=== PATIENT | male | born 1960 | race Caucasian/White ===

== ENCOUNTER 2020-06-06 09:59 | Outpatient (REF) | payer OTHER, SELFPAY ==
[2020-06-06 12:02] LABS: Alanine Aminotransferase 11 U/L (0-40); Alkaline Phosphatase 113 U/L (39-117); Anion Gap 10 (12-20); Aspartate Amino Transferase 15 U/L (5-37); Bilirubin Total 0.5 mg/dL (0.0-1.0); Blood Urea Nitrogen 15 mg/dL (9-16); Calcium 9.2 mg/dL (8.4-10.2); Carbon Dioxide 29 mmol/L (22-29); Chloride 103 mmol/L (96-108); Cholesterol 180 mg/dL; Estimated Glomerular Filt Rate > 60; Glucose Fasting 103 mg/dL (60-99); HDL Cholesterol 64 mg/dL; LDL Cholesterol Calculated 104 mg/dl; Potassium 4.6 mmol/L (3.3-5.1); Sodium 137 mmol/L (135-145); Total Protein 6.5 g/dL (6.5-8.0); Triglycerides 64 mg/dL
[2020-06-06 12:10] LABS: Prostate Specific Antigen 1.27 ng/mL (<0.05-4.0)
== END 2020-06-06 10:00 | disposition home or self-care (01) ==
LOC: HO.MANLDS 09:59
PROVIDERS: PCP Internal Medicine; Visit Provider Internal Medicine
DX: Z12.5 Encounter for screening for malignant neoplasm of prostate (principal); I10 Essential (primary) hypertension
CPT/HCPCS: 36415; 80053; 80061; 84153

== ENCOUNTER 2021-08-05 10:00 | Outpatient (REF) | payer OTHER, SELFPAY ==
[2021-08-05 11:20] LABS: MANUAL DIFF FLAG NO
[2021-08-05 11:25] LABS: Basophils Percent Auto 0.2 % (0-2); Eosinophils Absolute Auto 0.2 X10*3/uL (0.0-0.4); Eosinophils Percent Auto 4.9 % (0-4); Hematocrit 40.9 % (42.0-52.0); Hemoglobin 14.1 g/dl (14.0-18.0); Imm Gran Abs Auto 0.01 X10*3/uL (0.00-0.03); Imm Gran Pct Auto 0.2 % (0.0-0.4); Lymphocytes Absolute Auto 1.2 X10*3/uL (1.2-4.9); Lymphocytes Percent Auto 28.1 % (20-40); Mean Corpuscular HGB Conc 34.5 g/dl (31.0-36.0); Mean Corpuscular Hemoglobin 32.4 pg (27.0-33.0); Mean Platelet Volume 9.4 fL (9.4-12.4); Monocytes Absolute Auto 0.5 X10*3/uL (0.1-1.2); Monocytes Percent Auto 12.1 % (2-11); Neutrophils Absolute Auto 2.4 x10*3/uL (2.0-8.3); Neutrophils Percent Auto 54.5 % (45-73); Platelet Count 272 X10*3/uL (160-400); Red Blood Count 4.35 X10*6/uL (4.60-5.80); Red Cell Distribution Width 12.1 % (11.0-16.0); White Blood Count 4.3 X10*3/uL (4.8-10.8)
[2021-08-05 11:52] LABS: Alanine Aminotransferase 6 U/L (0-40); Albumin Level 4.1 g/dL (3.5-5.0); Alkaline Phosphatase 105 U/L (39-117); Anion Gap 13 (12-20); Aspartate Amino Transferase 13 U/L (5-37); Bilirubin Total 0.4 mg/dL (0.0-1.0); Blood Urea Nitrogen 15 mg/dL (9-16); Calcium 9.8 mg/dL (8.4-10.2); Carbon Dioxide 27 mmol/L (22-29); Chloride 103 mmol/L (96-108); Estimated Glomerular Filt Rate > 60; Glucose Fasting 93 mg/dL (60-99); Potassium 4.8 mmol/L (3.3-5.1); Sodium 138 mmol/L (135-145); Total Protein 6.8 g/dL (6.5-8.0)
[2021-08-05 12:05] LABS: Thyroid Stimulating Hormone 0.01 uIU/mL (0.32-4.0); Vitamin D 25-OH Total 53.2 ng/mL (>30)
[2021-08-05 12:35] LABS: Vitamin B12 337 pg/mL (200-900)
[2021-08-11 14:20] LABS: Testosterone, Free 72.8 pg/mL (35.0-155.0); Testosterone, Total 617 ng/dL (250-1100)
== END 2021-08-05 10:01 | disposition home or self-care (01) ==
LOC: HO.MANLDS 10:00
PROVIDERS: PCP Internal Medicine; Visit Provider Internal Medicine
DX: R53.81 Other malaise (principal)
CPT/HCPCS: 36415; 80053; 82306; 82607; 84402; 84403; 84443; 85025

== ENCOUNTER 2021-08-19 11:44 | Outpatient (REF) | payer OTHER, SELFPAY ==
[2021-08-19 14:07] LABS: Free T4 (Free Thyroxine) 1.49 ng/dL (0.71-1.85); Thyroid Stimulating Hormone 0.02 uIU/mL (0.32-4.0)
[2021-09-09 08:42] LABS: SARS COV2 IgG Negative
== END 2021-08-19 11:45 | disposition home or self-care (01) ==
LOC: HO.MANLDS 11:44
PROVIDERS: PCP Internal Medicine; Visit Provider Internal Medicine
DX: Z20.822 Contact with and (suspected) exposure to COVID-19 (principal); R53.83 Other fatigue; E03.9 Hypothyroidism, unspecified
CPT/HCPCS: 36415; 84439; 84443; 86769

== ENCOUNTER 2021-09-06 12:06 | Outpatient (REF) | payer OTHER, SELFPAY ==
[2021-09-06 19:05] LABS: Alanine Aminotransferase 16 U/L (0-40); Albumin Level 4.1 g/dL (3.5-5.0); Alkaline Phosphatase 117 U/L (39-117); Anion Gap 13 (12-20); Aspartate Amino Transferase 23 U/L (5-37); Bilirubin Total 0.5 mg/dL (0.0-1.0); Blood Urea Nitrogen 30 mg/dL (9-16); Calcium 9.3 mg/dL (8.4-10.2); Carbon Dioxide 27 mmol/L (22-29); Chloride 103 mmol/L (96-108); Estimated Glomerular Filt Rate > 60; Glucose Random 85 mg/dL (60-115); Potassium 4.6 mmol/L (3.3-5.1); Sodium 138 mmol/L (135-145); Total Protein 6.7 g/dL (6.5-8.0)
[2021-09-06 19:25] LABS: Free T4 (Free Thyroxine) 1.35 ng/dL (0.71-1.85); Thyroid Stimulating Hormone 0.23 uIU/mL (0.32-4.0)
[2021-09-06 19:29] LABS: Vitamin B12 309 pg/mL (200-900)
== END 2021-09-06 12:07 | disposition home or self-care (01) ==
LOC: HO.MANLDS 12:06
PROVIDERS: Visit Provider Internal Medicine
DX: E03.9 Hypothyroidism, unspecified (principal); I10 Essential (primary) hypertension; E53.8 Deficiency of other specified B group vitamins
CPT/HCPCS: 36415; 80053; 82607; 84439; 84443

== ENCOUNTER 2021-11-01 09:31 | Outpatient (REF) | payer OTHER, SELFPAY ==
[2021-11-01 11:56] LABS: T4 Thyroxine 9.1 ug/dL (4.5-12.0)
== END 2021-11-01 09:32 | disposition home or self-care (01) ==
LOC: HO.MANLDS 09:31
PROVIDERS: Visit Provider Internal Medicine
DX: E03.9 Hypothyroidism, unspecified (principal)
CPT/HCPCS: 36415; 84436; 84443

== ENCOUNTER 2021-11-08 11:41 | Outpatient (REF) | payer OTHER, SELFPAY ==
[2021-11-08 13:12] LABS: Blood Urea Nitrogen 18 mg/dL (9-16); Estimated Glomerular Filt Rate > 60
== END 2021-11-08 11:42 | disposition home or self-care (01) ==
LOC: HO.MANLDS 11:41
PROVIDERS: PCP Internal Medicine; Referring Provider Internal Medicine; Visit Provider Physician Assistant
DX: R31.21 Asymptomatic microscopic hematuria (principal); R82.89 Other abnormal findings on cytological and histological examination of urine
CPT/HCPCS: 36415; 82565; 84520

== ENCOUNTER 2021-12-16 13:32 | Outpatient (REF) | payer OTHER, SELFPAY ==
[2021-12-16 18:41] LABS: MANUAL DIFF FLAG NO
[2021-12-16 18:45] LABS: Basophils Percent Auto 0.4 % (0-2); Eosinophils Absolute Auto 0.4 X10*3/uL (0.0-0.4); Eosinophils Percent Auto 5.5 % (0-4); Hematocrit 42.1 % (42.0-52.0); Hemoglobin 13.6 g/dl (14.0-18.0); Imm Gran Abs Auto 0.05 X10*3/uL (0.00-0.03); Imm Gran Pct Auto 0.7 % (0.0-0.4); Lymphocytes Absolute Auto 1.5 X10*3/uL (1.2-4.9); Lymphocytes Percent Auto 20.4 % (20-40); Mean Corpuscular HGB Conc 32.3 g/dl (31.0-36.0); Mean Corpuscular Hemoglobin 31.1 pg (27.0-33.0); Mean Corpuscular Volume 96.3 fL (80.0-98.0); Mean Platelet Volume 9.6 fL (9.4-12.4); Monocytes Absolute Auto 0.5 X10*3/uL (0.1-1.2); Neutrophils Absolute Auto 4.7 x10*3/uL (2.0-8.3); Platelet Count 357 X10*3/uL (160-400); Red Blood Count 4.37 X10*6/uL (4.60-5.80); Red Cell Distribution Width 15.7 % (11.0-16.0); White Blood Count 7.2 X10*3/uL (4.8-10.8)
[2021-12-16 19:04] LABS: Alanine Aminotransferase 56 U/L (0-40); Albumin Level 3.7 g/dL (3.5-5.0); Alkaline Phosphatase 82 U/L (39-117); Anion Gap 14 (12-20); Aspartate Amino Transferase 31 U/L (5-37); Blood Urea Nitrogen 14 mg/dL (9-16); Calcium 8.9 mg/dL (8.4-10.2); Carbon Dioxide 28 mmol/L (22-29); Chloride 102 mmol/L (96-108); Estimated Glomerular Filt Rate 60; Glucose Random 116 mg/dL (60-115); Potassium 4.9 mmol/L (3.3-5.1); Sodium 139 mmol/L (135-145); Total Protein 6.3 g/dL (6.5-8.0)
[2021-12-16 19:27] LABS: Free T4 (Free Thyroxine) 1.17 ng/dL (0.71-1.85); Thyroid Stimulating Hormone 0.07 uIU/mL (0.32-4.0)
== END 2021-12-16 13:33 | disposition home or self-care (01) ==
LOC: HO.MANLDS 13:32
PROVIDERS: Visit Provider Internal Medicine
DX: E03.9 Hypothyroidism, unspecified (principal)
CPT/HCPCS: 36415; 80053; 84439; 84443; 85025

== ENCOUNTER 2021-12-27 13:48 | Outpatient (REF) | payer OTHER, SELFPAY ==
[2021-12-27 19:11] LABS: Free T4 (Free Thyroxine) 1.09 ng/dL (0.71-1.85)
== END 2021-12-27 13:49 | disposition home or self-care (01) ==
LOC: HO.MANLDS 13:48
PROVIDERS: Visit Provider Internal Medicine
DX: E03.9 Hypothyroidism, unspecified (principal)
CPT/HCPCS: 36415; 84439; 84443

== ENCOUNTER 2022-06-18 11:16 | Outpatient (REF) | payer OTHER, SELFPAY ==
[2022-06-18 14:54] LABS: Alanine Aminotransferase 39 U/L (0-40); Alkaline Phosphatase 113 U/L (39-117); Anion Gap 12 (12-20); Aspartate Amino Transferase 26 U/L (5-37); Blood Urea Nitrogen 16 mg/dL (9-16); Calcium 9.1 mg/dL (8.4-10.2); Carbon Dioxide 30 mmol/L (22-29); Chloride 98 mmol/L (96-108); Estimated Glomerular Filt Rate 48; Glucose Random 94 mg/dL (60-115); Magnesium 2.2 mg/dL (1.6-2.6); Potassium 4.2 mmol/L (3.3-5.1); Sodium 136 mmol/L (135-145); Total Protein 6.3 g/dL (6.5-8.0)
[2022-06-18 15:34] LABS: Folate 13.5 ng/mL (> or = 4.0)
[2022-06-19 06:46] LABS: Vitamin B12 688 pg/mL (200-900)
== END 2022-06-18 11:17 | disposition home or self-care (01) ==
LOC: HO.MANLDS 11:16
PROVIDERS: Visit Provider Internal Medicine
DX: R25.1 Tremor, unspecified (principal)
CPT/HCPCS: 36415; 80053; 82607; 82746; 83735; 84443

== ENCOUNTER 2022-07-08 11:35 | Outpatient (REF) | payer OTHER, SELFPAY ==
[2022-07-08 13:39] LABS: Anion Gap 10 (12-20); Blood Urea Nitrogen 15 mg/dL (9-16); Calcium 9.2 mg/dL (8.4-10.2); Carbon Dioxide 31 mmol/L (22-29); Chloride 100 mmol/L (96-108); Estimated Glomerular Filt Rate > 60; Glucose Random 103 mg/dL (60-115); Potassium 5.1 mmol/L (3.3-5.1); Sodium 136 mmol/L (135-145)
== END 2022-07-08 11:36 | disposition home or self-care (01) ==
LOC: HO.MANLDS 11:35
PROVIDERS: Visit Provider Internal Medicine
DX: N28.9 Disorder of kidney and ureter, unspecified (principal)
CPT/HCPCS: 36415; 80048

== ENCOUNTER 2023-05-22 15:56 | Outpatient (REF) | payer OTHER, SELFPAY ==
[2023-05-22 18:05] LABS: Alanine Aminotransferase 23 U/L (0-40); Albumin Level 3.8 g/dL (3.5-5.0); Alkaline Phosphatase 106 U/L (39-117); Anion Gap 12 (12-20); Aspartate Amino Transferase 27 U/L (5-37); Bilirubin Total 0.6 mg/dL (0.0-1.0); Blood Urea Nitrogen 15 mg/dL (9-16); Carbon Dioxide 30 mmol/L (22-29); Chloride 103 mmol/L (96-108); Estimated Glomerular Filt Rate 44; Glucose Random 95 mg/dL (60-115); Magnesium 1.9 mg/dL (1.6-2.6); Potassium 4.9 mmol/L (3.3-5.1); Sodium 140 mmol/L (135-145); Total Protein 6.4 g/dL (6.5-8.0)
== END 2023-05-22 15:57 | disposition home or self-care (01) ==
LOC: HO.MANLDS 15:56
PROVIDERS: Visit Provider Internal Medicine
DX: R25.1 Tremor, unspecified (principal)
CPT/HCPCS: 36415; 80053; 83735; 84443

== ENCOUNTER 2023-08-25 11:37 | Outpatient (REF) | payer OTHER, SELFPAY ==
[2023-08-25 13:31] LABS: MANUAL DIFF FLAG NO
[2023-08-25 13:50] LABS: Basophils Percent Auto 0.6 % (0-2); Eosinophils Absolute Auto 0.3 X10*3/uL (0.0-0.4); Eosinophils Percent Auto 4.8 % (0-4); Hemoglobin 12.1 g/dl (14.0-18.0); Imm Gran Abs Auto 0.01 X10*3/uL (0.00-0.03); Imm Gran Pct Auto 0.2 % (0.0-0.4); Lymphocytes Absolute Auto 1.2 X10*3/uL (1.2-4.9); Lymphocytes Percent Auto 23.4 % (20-40); Mean Corpuscular HGB Conc 33.6 g/dl (31.0-36.0); Mean Corpuscular Hemoglobin 31.2 pg (27.0-33.0); Mean Corpuscular Volume 92.8 fL (80.0-98.0); Mean Platelet Volume 10.3 fL (9.4-12.4); Monocytes Absolute Auto 0.6 X10*3/uL (0.1-1.2); Monocytes Percent Auto 11.2 % (2-11); Neutrophils Absolute Auto 3.1 x10*3/uL (2.0-8.3); Neutrophils Percent Auto 59.8 % (45-73); Platelet Count 286 X10*3/uL (160-400); Red Blood Count 3.88 X10*6/uL (4.60-5.80); Red Cell Distribution Width 13.7 % (11.0-16.0); White Blood Count 5.2 X10*3/uL (4.8-10.8)
[2023-08-25 14:25] LABS: Alanine Aminotransferase 11 U/L (0-40); Albumin Level 3.9 g/dL (3.5-5.0); Alkaline Phosphatase 104 U/L (39-117); Anion Gap 11 (12-20); Aspartate Amino Transferase 16 U/L (5-37); Bilirubin Total 0.3 mg/dL (0.0-1.0); Blood Urea Nitrogen 15 mg/dL (9-16); Calcium 9.1 mg/dL (8.4-10.2); Carbon Dioxide 29 mmol/L (22-29); Chloride 103 mmol/L (96-108); Estimated Glomerular Filt Rate > 60; Glucose Random 100 mg/dL (60-115); Potassium 3.8 mmol/L (3.3-5.1); Sodium 139 mmol/L (135-145); Total Protein 6.7 g/dL (6.5-8.0)
== END 2023-08-25 11:38 | disposition home or self-care (01) ==
LOC: HO.MANLDS 11:37
PROVIDERS: Referring Provider Orthopaedic Surgery; Visit Provider Internal Medicine
DX: Z01.818 Encounter for other preprocedural examination (principal)
CPT/HCPCS: 36415; 80053; 85025

== ENCOUNTER 2024-05-23 15:40 | Outpatient (REF) | payer MEDICAID, SELFPAY ==
--- OUTSIDE RECORDS SUMMARY | 2024-05-23 17:57 | XMS_ITS | Patient Health Record ---
[facility] Address [address] [place] [address] Care Team Providers Care Family Practice Physician Name Role Phone Roland Mirza MD Primary Care Provider Unavailabl e Black, Ana Unavailable [phone] Allergies No Known Allergies Reason For Referral No Information Medications Medication SIG (Take, Route, Frequency, Duration) Notes Start Date End Date Status Synthroid 200 MCG 1 Tablet Orally Twic e daily Active DULoxetine HCl 60 MG 1 capsule Orally On ce a day for 30 day(s) Active Eliquis 5 MG as directed Orally Not-Taking traZODone HCl 100 MG 1 tablet at bedtime Orally Once a day for 30 day(s) Active Sertraline HCl Unkno wn QUEtiapine Fumarate 25 MG 1 Tablet Orally Twice daily Active QUEtiapine Fumarate 100 MG 1 tablet at bedtime Orally Once a day for 30 day(s) Active Ambien 5 MG 1 tablet at bedtime Orally Once a day Active Social History Tobacco Use: Social History Observation Description Date Details (start date - stop date) Never Smoker NA - NA Tobacco Use/Smoking Question Answer Notes Are you a: nonsmoker Additional Findings: Tobacco Non-User Aggressive non-smoker Tobacco use other than smoking: Question Answer Notes Are you an other tobacco user? 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) Active confirmed Plan Of Treatment No Information Insurance Providers Payer Name Payer Address Payer Phone Subscriber Number Group Number Insured Name Patient Relationship to Insured Coverage Start Date Coverage End Date [facility] [address] [place] [address] [id number] Nathaniel Hernandez Self - patient is the insured Medical (General) History Medical History History ICD Code Thyroid disorder Back,Hip,and Knee pain Joint implants/screws A fib Surgical History Surgery Date(Month/Year) knee replacement shoulder replacement 2019 arm 2001 & 2014 Meniscus repair 2011 disc surgery 2014 heart surgery unspecified 2015 left knee arthroscopy 2016 intestinal surgery x2 2016 toe removal 2020
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
--- OUTSIDE RECORDS SUMMARY | 2024-05-23 17:57 | XMS_ITS | Data Portability ---
Author Organization [facility] Mikhail Barron [facility], [facility] Address [address] [place] [address] Care Team Providers Care Jewish Thought Professor Name Role Phone LASHAE NICOLAS Primary Care Provider [phone] Assessment Encounter Date Assessment Date Assessment LastModified by Organization Details LastModified Time 08/19/2023 08/19/2023 Dx:painful right anatomic total shoulder Interval History:the patient returns, complains of ongoing right shoulder pain. Workup has been negative for infectioon but no biopsies have been done. SocHx: nonsmoker, nondrinker Past Medical/Surgical History/Meds/Allerg ies reviewed and charted ROS: negative Physical Exam: afebrile, vital signs stable, in no apparent distress, oriented to person/place/time. Gait symmetric. Skin intact without erythema. Heart RRR Lungs: clear Abdomen soft, nontender. rightSHOULDER: no redness, warmth, deformity. Range of motion active 150/30/30. Strength 5/5 all muscle groups. Apprehension negative. Impingement sign negative. Acromioclavicular joint nontender without irritability with cross body adduction. Neurovascular Exam wnl. Contralateral SHOULDER: no redness, warmth, deformity. Range of motion full in all planes with no stiffnes. Strength 5/5 all muscle groups. Apprehension negative. Impingement sign negative. Acromioclavicular joint nontender without irritability to cross body adduction. Neurovascular Exam wnl. New Studies: 4 views taken today, no obvious radiographic signs of loosening, metal-backed glenoid, apex on the humeral side. Impression:painful right anatomic total shoulder Plan: 1.recommended right shoulder arthroscopy, multiple biopsies to rule out infection, arthroscopicc evaluation of the humeral and glenoid components. Discussed potential need for reverse arthroplasty as definitive management but for 10 to rule out infection and evaluate components for loosening and so I think arthroscopy with debridement and culture/biopsy is a reasonable first step. [employer] [facility] speech recognition manager sales support software was used to create portions of this document. An attempt at proofreading has been made to minimize errors. Please call for corrections. [email or web address] Not available 08/19/2023 15:49:57 09/09/2023 09/09/2023 Procedure/Date:r igh t shoulder arthroscopy, debridement, rotator cuff tear visualized History: Doing well, no complications Exam: Wound benign Radiographs: none. Cultures negative to date Clinical Status: Doing well postoperatively Work Status/Plan: not applicable Physical Therapy Status: Continue per protocol Medication Prescriptions: [none given] Plan/Follow up:6 weeks [facility] speech recognition manager sales support software was used to create portions of this document. An attempt at proofreading has been made to minimize errors. Please call for corrections. [email or web address] Not available 09/09/2023 14:38:10 Plan of Treatment Reminders Order Date Submit Date Provider Last Modified By Organization Details Last Modified Time Details Appointments NEW PATIENT 15 2024 01:30P M Jonny Swartz MD Not available Not available Not available Lab None recorded . Referral None recorded . Procedures None recorded . Surgeries None recorded . Imaging None recorded . Medication Orders None recorded . Patient TargetsNo targets recorded. Patient InstructionsNo instructions recorded. Reason for Referral None Reported. Results Created Date Observation Date Name Description Value Unit Range Abnormal Flag Note LastModifiedBy Organization Detail LastModifiedTime 11/27/19 24 10/11/2018 imagi ng/di agnos tic resul t No observ ation record ed. [email or web address] Not Available 10/30 02:52:19 11/27/19 24 10/11/2018 imagi ng/di agnos tic resul t No observ ation record ed. [email or web address] Not Available 10/30 02:52:21 11/27/19 24 10/11/2018 imagi ng/di agnos tic resul t No observ ation record ed. [email or web address] Not Available 10/30 02:52:22 11/27/19 24 06/02/2019 imagi ng/di agnos tic resul t No observ ation record ed. [email or web address] Not Available 10/30 02:53:05 11/27/19 24 11/27/2022 imagi ng/di agnos tic resul t No observ ation record ed. [email or web address] Not Available 10/30 02:53:38 11/27/19 24 11/27/2022 imagi ng/di agnos tic resul t No observ ation record ed. [email or web address] Not Available 10/30 02:53:39 11/27/19 24 11/27/2022 imagi ng/di agnos tic resul t No observ ation record ed. [email or web address] Not Available 10/30 02:53:40 Result Notes None recorded. Problems Name Problem SNOMED Code Status Onset Date Resolution Date Notes Provider Name and Address Organization Details Recorded Time Tear of lateral meniscus of knee 472107787 Active 2017 Problem Code: S83.272A ; Problem Code Type: ICD-10; Status: 'A'; Not Available [facility] 11:13:45 Tear of medial meniscus of knee 370456806 Active 2017 Problem Code: S83.232A ; Problem Code Type: ICD-10; Status: 'A'; Not Available [facility] 11:13:46 Problem Notes None recorded. Procedures Surgical History None recorded. Imaging Results Imaging Date Name Status LastModified by [facility] Details LastModified Time 10/11/2018 imaging/diag nostic result completed Information not available 11/27/2023 02:52:19 10/11/2018 imaging/diag nostic result completed Information not available 11/27/2023 02:52:21 10/11/2018 imaging/diag nostic result completed Information not available 11/27/2023 02:52:22 06/02/2019 imaging/diag nostic result completed Information not available 11/27/2023 02:53:05 11/27/2022 imaging/diag nostic result completed Information not available 11/27/2023 02:53:38 11/27/2022 imaging/diag nostic result completed Information not available 11/27/2023 02:53:39 11/27/2022 imaging/diag nostic result completed Information not available 11/27/2023 02:53:40 Procedure Notes None recorded. Medical Equipment None Reported. Allergies No known drug allergies Medications Name Sig Start Date Stop Date Status Note LastModified by Organization Details LastModified Time pseudoephe drine-guai fenesin ER 80-700 mg tablet,ext ended release as directed 1 to 2 tablets q 8hrs prn pain 10/17 completed Statu s: 'Disc ontin ued'; Not Available Not Available Not Available morphine 15 mg immediate release tablet Take 1 tablet every 4-6 hours by oral route as needed for 5 days, for post operative pain. 2023 active Not Available Not Available Not Avai lable Synthroid Synthroid 200MCG Tablet 2022 active Statu s: 'Curr ent'; Not Available Not Available Not Available Cartia XT Cartia XT 240MG Capsule Extended Release 24 Hour 10/17 completed Statu s: 'Disc ontin ued'; Not Available Not Available Not Available tadalafil Tadalafil 5MG Tablet 2022 active Statu s: 'Curr ent'; Not Available Not Available Not Available oxycodone HCl-oxycod one-ASA 1 every 4 - 6 hours as needed PRN PAINDO NOT DRIVE WHILE TAKING THIS MEDICATION 2022 active Statu s: 'Curr ent'; Not Available Not Available Not Available Vitals Date Recorded Body height Body mass index (BMI) Body weight Provider Name and Address Organization Details Last Updated DateTime 09/09/2023 190.5 cm 31.5 kg/m2 099267.28 g PRICILA AGUILAR [place] - [facility] 09/09/2023 13:24:00 Social History None recorded. Functional Status None recorded. Mental Status None recorded. Family History Nothing Reported. Medical History No medical history recorded. Past Encounters Encounter ID Performer Location Encounter Start Date Encounter Closed Date Diagnosis/Indication Diagnosis SNOMED-CT Code Diagnosis ICD10 Code Diagnosis Note [id number] MD [facility] [address] [place] [address] 08/19/2023 09:42:45 09/11/2023 13:57:17 History of reverse prosthetic total arthroplasty of right shoulder [id number] 6190372 Z96.975 [id number] MD [facility] [address] [place] [address] 09/09/2023 13:03:49 09/30/2023 10:21:42 History of total arthroplasty of right shoulder 936340820 Z96.611 Health Concerns Section Related Observation LastModified by Organization Detai ls LastModified Time None Recorded Concern Status LastModified by Organization Details LastModified Time None Recorded Advance Directives Directive None Recorded Payers Encounter Date Sequence Insurance Name Policy Number Policy Jacob Covered Member ID Jacob Member ID Guarantor Name 08/19/2023 1 [facility] [id number] Stephania Hernandez [id number] Nathaniel Hernandez 09/09/2023 1 [facility] [id number] Stephania Hernandez [id number] Nathaniel Hernandez
--- OUTSIDE RECORDS SUMMARY | 2024-05-23 17:57 | XMS_ITS ---
Author Name [facility] Organization Unknown History of Medication Use Medication Directions Dispensed Refills Start Date End Date Stat Synthroid 200 MCG tablet Take 2 tablets (400 mcg total) by mouth every morning. 10/07/2022 active QUEtiapine (SEROquel) 100 MG tablet TAKE 1 AND 1/2 TABLETS BY MOUTH DAILY AT BEDTIME 10/20/2022 active DULoxetine (CYMBALTA) 60 MG capsule Take by mouth daily. 10/08/2022 acti ve Problems Problem Status Onset Date Problem Type Date of Resoluti on Source Anxiety active ProblemAct [facility] Disease of thyroid gland active ProblemAct [facility] Insomnia active ProblemAct [facility] Afib active ProblemAct [facility] Obesity (BMI 30.0-34.9) active ProblemAct [facility] Other specified anemias active 2023-01-22 ProblemAct [facility]
--- OUTSIDE RECORDS SUMMARY | 2024-05-23 17:57 | XMS_ITS | Encounter Summary ---
Author Organization [facility] Address [address] [place], [place] [id number] Care Team Providers Care Supervisor Sign Shop Name Role Phone Roland Mirza DO Primary Care Provider [phone] Reason for Visit * Reason Comments Appointment Advice Only Encounter Details Date Type Department Care Team ([facility] st Contact Info) Description 02/18/[address] [address] Jose Bazzi MD [address] [id number] Appointment; Advice Only Social History Tobacco Use Types Packs/Day Years Used Date Smoking Tobacco: Never Smokeless Tobacco: Never Alcohol Use Standard Drinks/Week Comments Never 0 (1 standard drink = 0.6 oz pur e alcohol) AUDIT-C Answer Date Recorded Q1: How often do you have a drink containing alcohol? Never 01/14/2023 Q2: How many drinks containi ng alcohol do you have on a typical day when you are drinking? Patient does not drink Q3: How often do you have si x or more drinks on one occasion? Never 01/14/2023 Sex and Gender Information Value Date Recorded Sex Assigned at Male 09/10/2022 11:03 AM EDT Gender Identity Male 09/10/2022 11:03 AM EDT Sexual Orientation Not on file documented as of this encounter Miscellaneous Notes * Telephone Encounter - Siri Marie LPN - 2023 8:17 AM EST Spoke with patient, he is feeling improved and is comfortable waiting to be seen on his scheduled appt date Siri Marie LPN 2023 8:17 AM * Telephone Encounter - Siri Marie LPN - 02/18/2023 1:17 PM EST Spoke with patient, he is going to set up mychart and send a picture to assess Siri Marie LPN 02/18/2023 1:17 PM documented in this encounter Plan of Treatment Not on file documented as of this encounter Visit Diagnoses Not on filedocumented in this encounter Care Teams Supervisor Sign Shop Relationship Specialty Start Date End Date Roland Mirza DO [address] [facility] [place] [address] [place] [address] PCP - General 09/10/22 documented as of this encounter
--- OUTSIDE RECORDS SUMMARY | 2024-05-23 17:57 | XMS_ITS | Clinical Summary ---
Author Organization [facility] Address [address] [place] [address] Care Team Providers Care Slip Presser Name Role Phone Roland Mirza DO Primary Care Provider [phone] Allergies No known active allergies Medications Medication Sig Dispensed Refills Start Date End Date Status buPROPion (WELLBUTRIN XL) 300 MG 24 hr tablet Take 1 tablet (300 mg total) by mouth every morning. 10/08/2022 Active DULoxetine (CYMBALTA) 60 MG capsule Take 1 capsule (60 mg total) by mouth every morning. 10/08/2022 Active QUEtiapine (SEROquel) 100 MG tablet TAKE 1 AND 1/2 TABLETS BY MOUTH DAILY AT BEDTIME 10/20/2022 Active PreviDent 5000 Dry Mouth 1.1 % Gel USE ONCE EVERY DAY IN PLACE OF REGULAR TOOTHPASTE 10/10/2022 Active traZODone (DESYREL) 100 MG tablet Take 2 tablets (200 mg total) by mouth nightly. 10/20/2022 Active tadalafil (CIALIS) 5 mg tablet Take 1 tablet (5 mg total) by mouth daily. 10/20/2022 Active Synthroid 200 MCG tablet Take 2 tablets (400 mcg total) by mouth every morning. 10/07/2022 Active oxyCODONE (ROXICODONE) 5 MG immediate release tablet Take 1 tablet (5 mg total) by mouth every 4 (four) hours as needed for severe pain. Max Daily Amount: 30 mg Active oxyCODONE (ROXICODONE) 5 MG immediate release tabletIndications:P eyronie's disease Take 1 tablet (5 mg total) by mouth 3 times daily (every 8 hours) as needed for severe pain. Continue on any baseline narcotics that you take on a regular basis and you may take an extra 5 mg up to every 8 hours as needed for breakthrough pain over the next few days Max Daily Amount: 15 mg 6 tablet 02/04/2023 Active phenazopyridine (PYRIDIUM) 200 MG tabletIndications:P eyronie's disease Take 1 tablet (200 mg total) by mouth 3 times daily (every 8 hours) as needed (Burning with urination (dysuria)). 6 tablet 02/04/2023 Active Active Problems Problem Noted Date Diagnosed Date Other specified anemias 01/22/2023 Assessment & Plan (01/22/2023 3:03 PM EDT): On lab review H&H= 12.4 & 39 on 01/21/23. Intervention: Lab monitoring. Anxiety Assessment & Plan (01/21/2023 11:22 AM EDT): Managed by therapy with Scarlett Robins, therapist and medications prescribed by Roland Mirza DO. Patient denies suicidal or homicidal ideation. Continue current medication regimen as prescribed. Patient to follow up with provider as previously directed. Disease of thyroid gland Overview (01/21/2023): HYPOTHYROIDISM Assessment & Plan (01/21/2023 11:23 AM EDT): Compliant with thyroid medication. Continue current medication regimen as prescribed. Patient to follow up with PCP or city councilman for continued management of hypothyroidism as previously directed. Insomnia Assessment & Plan (01/21/2023 11:23 AM EDT): Managed with current regimen. Continue with plan of care and follow up with PCP for further management and treatment. Obesity (BMI 30.0-34.9) Assessment & Plan (01/21/2023 12:20 PM EDT): BMI 33.97. Lifestyle modifications, diet, and exercise. Afib Assessment & Plan (01/21/2023 11:28 AM EDT): History of atrial fibrillation. Stable does not require any medication at this time. Patient reports he has had two ablations. The last ablation was in 2017 and has not had any reoccurring afib. Currently followed by Dr. Farmer at [facility]. Last note reviewed. Continue with plan of care and follow up as previously directed for further management and treatment. Family History Medical History Relation Name Comments Heart disease Father Heart disease Mother Relation Name Status Comments Father Mother Social History Tobacco Use Types Packs/Day Years Used Date Smoking Tobacco: Never Smokeless Tobacco: Never Tobacco Cessation:Counseling Given: Not Answered Alcohol Use Standard Drinks/Week Comments Never 0 [...] AM EDT Sexual Orientation Not on file Last Filed Vital Signs Vital Sign Reading Time Taken Comments Blood Pressure 147/83 02/04/2023 10:45 AM EST Pulse 73 02/04/2023 10:45 AM EST Temperature 36.9 ??C (98.4 ??F) 02/04/2023 9:50 AM ES T Respiratory Rate 14 02/04/2023 10:45 AM EST Oxygen Saturation 97% 02/04/2023 10:45 AM EST Inhaled Oxygen Concentration - - Weight 120 kg (264 lb 8.8 oz) 01/21/2023 11:26 A M EDT Height 188 cm (6' 2 ) 01/21/2023 11:26 AM EDT Body Mass Index 33.97 01/21/2023 11:26 AM EDT Plan of Treatment Health Maintenance Due Date Last Done Comments Hepatitis C Virus Screening 1962 HIV Screening 1975 DTaP/Tdap/Td Vaccines (1 - Tdap) 1981 Colonoscopy 2007 Pneumococcal Vaccines 50+ (1 of 1 - PCV) 02/21/2012 Zoster (Shingles) Vaccine (1 of 2) 02/21/2012 Influenza Vaccine 10/29/2023 COVID-19 Vaccine ( - 2023-2 5 season) 2023 RSV Vaccine 60 years and old er and Patients (1 - 1-dose 75+ series) 2037 Hepatitis B Vaccines Aged Out No long er eligible based on patient's age to complete this topic Pneumococcal Vaccine: Pediat franck (0-5 Years) and At-Risk Patients (6 to 49 Years) Aged Out No longer eligible b ased on patient's age to complete this topic Advance Directives * Full Code (Latest Code Status on File) Date Activated Date Inactivated Comments 02/04/2023 7:24 AM Care Teams Slip Presser Relationship Specialty Start Date End Date Roland Mirza DO [address] [facility] [place] [address] [place] [address] PCP - General 09/10/22
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
[2024-05-23 17:58] LABS: MANUAL DIFF FLAG NO
[2024-05-23 18:12] LABS: Basophils Percent Auto 0.4 % (0-2); Eosinophils Absolute Auto 0.3 X10*3/uL (0.0-0.4); Eosinophils Percent Auto 5.5 % (0-4); Hematocrit 35.9 % (42.0-52.0); Hemoglobin 11.6 g/dl (14.0-18.0); Imm Gran Abs Auto 0.02 X10*3/uL (0.00-0.03); Imm Gran Pct Auto 0.4 % (0.0-0.4); Lymphocytes Absolute Auto 1.2 X10*3/uL (1.2-4.9); Lymphocytes Percent Auto 22.6 % (20-40); Mean Corpuscular HGB Conc 32.3 g/dl (31.0-36.0); Mean Corpuscular Hemoglobin 29.7 pg (27.0-33.0); Mean Corpuscular Volume 91.8 fL (80.0-98.0); Mean Platelet Volume 11.6 fL (9.4-12.4); Monocytes Absolute Auto 0.6 X10*3/uL (0.1-1.2); Neutrophils Absolute Auto 3.1 x10*3/uL (2.0-8.3); Neutrophils Percent Auto 59.1 % (45-73); Platelet Count 326 X10*3/uL (160-400); Red Blood Count 3.91 X10*6/uL (4.60-5.80); Red Cell Distribution Width 14.2 % (11.0-16.0); White Blood Count 5.3 X10*3/uL (4.8-10.8)
[2024-05-23 18:38] LABS: Alanine Aminotransferase 9 U/L (0-40); Albumin Level 3.4 g/dL (3.5-5.0); Anion Gap 11 (12-20); Aspartate Amino Transferase 22 U/L (5-37); Bilirubin Total 0.2 mg/dL (0.0-1.0); Blood Urea Nitrogen 10 mg/dL (9-16); Carbon Dioxide 26 mmol/L (22-29); Chloride 103 mmol/L (96-108); Cholesterol 144 mg/dL (<200); Estimated Glomerular Filt Rate > 60; Glucose Random 98 mg/dL (60-115); HDL Cholesterol 43 mg/dL (>40); LDL Cholesterol Calculated 88 mg/dL (<100); Potassium 4.3 mmol/L (3.3-5.1); Sodium 136 mmol/L (135-145); Total Protein 6.8 g/dL (6.5-8.0); Triglycerides 67 mg/dL (<150)
[2024-05-23 18:44] LABS: Rheumatoid Factor < 13.0 IU/mL (<15.0)
[2024-05-23 18:46] LABS: Alkaline Phosphatase 122 U/L (39-117)
[2024-05-23 18:49] LABS: Prostate Specific Antigen 1.91 ng/mL (<0.05-4.0)
[2024-05-23 18:58] LABS: Erythrocyte Sedimentation Rate 34 MM/HR (0-15); T4 Thyroxine 11.8 ug/dL (4.5-12.0); Thyroid Stimulating Hormone 0.07 uIU/mL (0.32-4.0)
[2024-05-24 13:58] LABS: Lyme Abs Screen <0.90 index
[2024-05-26 11:14] LABS: Anti Nuclear Antibody Screen NEGATIVE (NEGATIVE)
== END 2024-05-23 15:41 | disposition home or self-care (01) ==
LOC: HO.MANLDS 15:40
PROVIDERS: Visit Provider Internal Medicine
DX: E03.9 Hypothyroidism, unspecified (principal); I10 Essential (primary) hypertension; M25.50 Pain in unspecified joint
CPT/HCPCS: 36415; 80053; 80061; 84153; 84436; 84443; 85025; 85652; 86038; 86140; 86431; 86617; 86618

== ENCOUNTER 2024-05-31 16:20 | Outpatient (REF) | payer MEDICAID, SELFPAY ==
[2024-05-31 18:48] LABS: Iron 30 mcg/dL (45-160); Percent Iron Saturation 19 % (15-50); Total Iron Binding Capacity 162 mcg/dL (228-428); Unsaturated Iron Binding 132 ug/dL
[2024-05-31 18:59] LABS: Ferritin 169 ng/mL (20-250)
[2024-05-31 19:36] LABS: Folate 10.6 ng/mL (> or = 4.0); Vitamin B12 250 pg/mL (200-900)
--- OUTSIDE RECORDS SUMMARY | 2024-05-31 20:07 | XMS_ITS | Data Portability ---
Author Organization [facility] Mikhail Barron [facility], [facility] Address [address] [place] [address] Care Team Providers Care Chief Privacy Officer Name Role Phone LASHAE NICOLAS Primary Care Provider Assessment Encounter Date Assessment Date Assessment LastModified [...] and culture/biopsy is a reasonable first step. [employer] [facility] speech recognition machine woodworking sander software was used to create portions of [...] Medication Prescriptions: [none given] Plan/Follow up:6 weeks [facility] speech recognition machine woodworking sander software was used to create portions of [...] Time Tear of lateral meniscus of knee 117969128 Active 2017 Problem Code: S83.272A ; Problem Code Type: ICD-10; Status: 'A'; Not Available [facility] 11:13:45 Tear of medial meniscus of knee 331592459 Active 2017 Problem Code: S83.232A ; Problem Code Type: ICD-10; Status: 'A'; Not Available [facility] 11:13:46 Problem Notes None recorded. Procedures Surgical History None recorded. Imaging Results Imaging Date Name Status LastModified by [facility] Details LastModified Time 10/11/2018 imaging/diag nostic [...] Updated DateTime 09/09/2023 190.5 cm 31.5 kg/m2 350237.28 g PRICILA AGUILAR [place] - [facility] 09/09/2023 13:24:00 Social History None recorded. Functional Status None recorded. Mental Status None recorded. Family History Nothing Reported. Medical History No medical history recorded. Past Encounters Encounter ID Performer Location Encounter Start Date Encounter Closed Date Diagnosis/Indication Diagnosis SNOMED-CT Code Diagnosis ICD10 Code Diagnosis Note [id number] MD Ana Lyn [address] [place] [address] 08/19/2023 09:42:45 09/11/2023 13:57:17 History of reverse prosthetic total arthroplasty of right shoulder 6652598355 0752578 Z96.931 [id number] MD Ana Lyn [address] [place] [address] 09/09/2023 13:03:49 09/30/2023 10:21:42 History of total arthroplasty of right shoulder 962321671 Z96.611 Health Concerns Section Related Observation LastModified by Organization Detai ls LastModified Time None Recorded Concern Status LastModified by Organization Details LastModified Time None Recorded Advance Directives Directive None Recorded Payers Encounter Date Sequence Insurance Name Policy Number Policy Jacob Covered Member ID Jacob Member ID Guarantor Name 08/19/2023 1 [facility] [id number] Stephania Hernandez [id number] Nathaniel Hernandez 09/09/2023 1 [facility] [id number] Stephania Hernandez [id number] Nathaniel Hernandez
--- OUTSIDE RECORDS SUMMARY | 2024-05-31 20:08 | XMS_ITS | Patient Health Record ---
Author Organization [facility] Address [address] [place] [address] Care Team Providers Care Paint Crew Supervisor Name Role Phone Roland Mirza MD Primary Care Provider Unavailabl e Black, Ana Unavailable [phone] Allergies No Known Allergies Reason For Referral [...] Problem Acquired hammer toe of left foot (521800816286 9103) Other hammer toe(s) (acquired), left foot (M20.42) Active confirmed Problem Acquired deformity of left foot (373705778805 37082) PlantarFlexion of metatarsal of left foot (M21.6X2) Active confirmed Plan Of Treatment No Information Insurance Providers Payer Name Payer Address Payer Phone Subscriber Number Group Number Insured Name Patient Relationship to Insured Coverage Start Date Coverage End Date [facility] [address] [place] [address] [id number] Nathaniel Hernandez Self - patient is the [...]
--- OUTSIDE RECORDS SUMMARY | 2024-05-31 20:08 | XMS_ITS | Encounter Summary ---
Author Organization [facility] Address [address] [place], [place] [id number] Care Team Providers Care Internal Control Specialist Name Role Phone Roland Mirza DO Primary Care Provider [phone] Reason for Visit * Reason Comments Appointment Advice Only Encounter Details Date Type Department Care Team ([facility] st Contact Info) Description 02/18/[address] [address] Jose Bazzi MD [address] [phone] Appointment; Advice Only Social History Tobacco Use [...] on filedocumented in this encounter Care Teams Internal Control Specialist Relationship Specialty Start Date End Date Roland Mirza DO [address] [facility] [place] [address] [place] [address] PCP - General 09/10/22 documented as of this encounter
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
--- OUTSIDE RECORDS SUMMARY | 2024-05-31 20:08 | XMS_ITS | Data Portability ---
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 and changed to the fluoxetine which did not helpwe will put him on duloxe with the wellbutrin [id number] Roland iNcolas [facility] [address] [facility], [place] [address] 06/03/2022 08:57:39 06/03/2022 11:22:15 Hypertensive disorder 21467220 I10 currently stable will cont to rechk Impaired f asting glycemia 059671517 R73.01 here for rechk and will be getting labs Hypothyroidism 40364969 E03.9 TSH low, T4 pending will shk labhe has decreased dose Atrial fibrillation 4943 6004 I48.91 has been stablewill be cont to come off meds this coming month ( amlod dilitaz eliquis) Acute oste omyelitis of foot 490366075 M86.179 resolved Alcohol dependence 16262 003 F10.20 stable right now and is in remission Tremor 79785577 R25.1 has been getting worse over timehas been noticing a worsening and some finger sensation loss [id number] Roland Nicolas [facility] [address] [facility], [place] [address] 05/22/2023 16:05:28 05/25/2023 10:35:10 Alcohol dependence 79381392 F10.20 stable right now and is in remission Atrial fibrillation 4943 6004 I48.91 has been stablewill be cont to come off meds this coming month ( amlod dilitaz eliquis) Depressive disorder 1213 9007 F32.A is on wellbutrin 300 but doesnt feel quite enough and not feeling himself detox had stopped the duloxetine and changed to the fluoxetine which did not helpwe will put him on duloxe with the wellbutrin [id number] Roland Nicolas [facility] [address] [facility],[place] [address] 05/25/2023 15:39:48 05/26/2023 08:31:24 Hypothyroidism 18851486 E03.9 tsh is 20 will increase dose to 1 1/2 tab = 300mcg and rechk in 1-2 months Degenerati ve joint disease of shoulder region 00216650 M19.019 scooter inj well lucie Chronic ki dney disease 762292614 N18.9 Cholesterol screening 27 3732176 Z13.220 [id number] Roland Nicolas [facility] [address] [facility],[place], [place] 7 08/18/2023 13:54:51 08/18/2023 15:30:50 Pre-surgery evaluation 485822848 Z01.818 Patient is cleared for the proposed [...] has he had any episodes in years [id number] GLENNY SALDIVAR [facility] [address] [facility],[place] [address] 12/09/2023 13:47:18 12/09/2023 15:15:18 Fractured nasal bones 530228285 S02.2XXA check 4 to 6 weeks Fracture o f multiple ribs 6584616 S22.41XA check 4 to 6 weeks Pain of ri ght shoulder joint 1482457514 5192121 M25.511 check 4 to 6 weeks [id number] Roland Nicolas [facility] [address] [facility],[place] [address] 05/23/2024 14:49:29 05/23/2024 16:15:02 Atrial fibrillation 72144227 I48.91 we will have him get a monitor done Hypothyroidism 73016028 E03.9 Hypertensive disorder 38 033948 I10 currently stable will cont to rechk Multiple joint pain 3567 8005 M25.50 [id number] DO [facility] [address] [facility],[place] [address] 05/31/2024 15:33:13 05/31/2024 16:46:15 Depression screening 068796654 Z13.31 pos Depressive disorder 3548 9007 F32.A is on wellbutrin 300 but doesnt feel quite enough and not feeling himself detox had stopped the duloxetine and changed to the fluoxetine which did not helpwe will put him on duloxe with the wellbutrin Hypertensive disorder 38 454058 I10 currently stable will cont to rechk Hypothyroidism 74935917 E03.9 Impaired f asting glycemia 646655434 R73.01 here for rechk and will be getting labs Atrial fibrillation 4943 6004 I48.91 we will have him get a monitor done Anemia 738271104 D64.9 needs additional lab start with iron if low will need colonoscop egd Health Concerns Section Related Observation LastModified by Organization Detai ls LastModified Time None Recorded Concern Status LastModified by Organization Details LastModified Time None Recorded Advance Directives Directive None Recorded Payers Encounter Date Sequence Insurance Name Policy Number Policy Jacob Covered Member ID Jacob Member ID Guarantor Name 05/25/2023 1 [facility] Nathaniel Hernandez [id number] Nathaniel Hernandez 08/18/2023 1 [facility] Nathaniel Hernandez [id number] Nathaniel Hernandez 12/09/2023 1 [facility] Nathaniel Hernandez [id number] Nathaniel Hernandez 05/23/2024 1 [place] Nathaniel Hernandez [id number] Nathaniel Hernandez 05/31/2024 1 [place] Nathaniel Hernandez [id number] Nathaniel Hernandez Notes Date Note Type Note Provider Name and Address Organization Details Recorded Time 4 text/htm l here for scooter inj and review of lab Roland Nicolas DO [address] [facility], [place], [address], [facility] 05/25/2023 16:36:18 4 text/htm l [...] surg clearance for right shoulder revision Roland Nicolas DO [address] [place], [address], [facility] 08/18/2023 14:45:04 4 text/htm l suture removal removed all sutures, wound healingon abx from hospitalcleaned and dressed prior to leaving given repeat XR to check for routine healing vs displaced fx after the fact MADINA PATEL [address] [place], [address], [facility] 12/09/2023 14:24:44 5 text/htm l [...] when not drinking Roland Nicolas DO [address] [place], [address], [facility] 05/23/2024 15:38:54 5 text/htm l here for lab reviewlong detailed discussion re: evid of anemia with evid of elevated sed rate and crp Roland Nicolas DO [address] [facility], [place], [address], [facility] 05/31/2024 16:45:33
--- OUTSIDE RECORDS SUMMARY | 2024-05-31 20:09 | XMS_ITS | Clinical Summary ---
Author Organization [facility] Address [address] [place] [address] Care Team Providers Care Harness Tier Name Role Phone Roland Mirza DO Primary Care Provider [phone] Allergies No known active allergies Medications Medication [...] Patient to follow up with PCP or assembly adjuster for continued management of hypothyroidism as previously [...] afib. Currently followed by Dr. Farmer at [facility] and [facility]. Last note reviewed. Continue with plan [...] Inactivated Comments 02/04/2023 7:24 AM Care Teams Harness Tier Relationship Specialty Start Date End Date Roland Mirza DO [address] [facility] [place] [address] [place] [address] PCP - General 09/10/22
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
[2024-06-05 15:09] LABS: VITAMIN D (1,25 OH) D3 28 pg/mL; Vit D (1,25-Dihydroxy) Total 28 pg/mL (18-72); Vitamin D (1,25 OH) D2 <8 pg/mL
== END 2024-05-31 16:21 | disposition home or self-care (01) ==
LOC: HO.MANLDS 16:20
PROVIDERS: Visit Provider Internal Medicine
DX: D64.9 Anemia, unspecified (principal)
CPT/HCPCS: 36415; 82607; 82652; 82728; 82746; 83540

== ENCOUNTER 2024-07-04 09:50 | Outpatient (REF) | payer MEDICAID, SELFPAY ==
--- OUTSIDE RECORDS SUMMARY | 2024-07-04 11:30 | XMS_ITS | Encounter Summary ---
Author Organization [facility] Address [address] [place], [place] [address] Care Team Providers Care Hydrodynamics Professor Name Role Phone Roland Mirza DO Primary Care Provider [phone] Reason for Visit * Reason Comments Appointment Advice Only Encounter Details Date Type Department Care Team ([facility] st Contact Info) Description 02/18/[address] [address] Jose Bazzi MD [address] [id number] Appointment; Advice Only Social History Tobacco Use [...] on filedocumented in this encounter Care Teams Hydrodynamics Professor Relationship Specialty Start Date End Date Roland Mirza DO [address] [facility] [place] [address] PCP - General 09/10/22 documented as of this encounter
--- OUTSIDE RECORDS SUMMARY | 2024-07-04 11:30 | XMS_ITS | Clinical Summary ---
Author Organization [facility] Address [address] [place] [address] Care Team Providers Care Radioisotope Technician Name Role Phone Roland Mirza DO Primary Care Provider [phone] Allergies No known active allergies Medications Medication [...] Patient to follow up with PCP or probate clerk for continued management of hypothyroidism as previously [...] afib. Currently followed by Dr. Farmer at [facility] and [facility]. Last note reviewed. Continue with plan of [...] Inactivated Comments 02/04/2023 7:24 AM Care Teams Radioisotope Technician Relationship Specialty Start Date End Date Roland Mirza DO [address] [facility] [address] [place] [address] PCP - General 09/10/22
--- OUTSIDE RECORDS SUMMARY | 2024-07-04 11:30 | XMS_ITS | Data Portability ---
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 quite enough and not feeling himself detox had stopped the duloxetine and changed to the fluoxetine which did not helpwe will put him on duloxe with the wellbutrin [id number] Roland Nicolas, [facility] [address] [facility],[place] [address] 10/29/2021 13:19:48 10/29/2021 13:55:47 Pre-surgery evaluation 136595605 Z01.818 Patient is cleared for the proposed [...] he had any episodes in years Hypothyroidism 41494380 E03.9 TSH low, T4 pending will shk lab likely thyroid sick syndrome Depressive disorder 3535 8288 F32.A is on wellbutrin 300 but doesnt feel quite enough and not feeling himself detox had stopped the duloxetine and changed to the fluoxetine which did not helpwe will put him on duloxe with the wellbutrin [id number] Roland Nicolas [facility] [address] [facility], [place] [address] 06/03/2022 08:57:39 06/03/2022 11:22:15 Hypertensive disorder 45916248 I10 currently stable will cont to rechk Impaired f asting glycemia 209920278 R73.01 here for rechk and will be getting labs Hypothyroidism 53373089 E03.9 TSH low, T4 pending will shk labhe has decreased dose Atrial fibrillation 4943 6004 I48.91 has been stablewill be cont to come off meds this coming month ( amlod dilitaz eliquis) Acute oste omyelitis of foot 301982130 M86.179 resolved Alcohol dependence 28455 003 F10.20 stable right now and is in remission Tremor 24766621 R25.1 has been getting worse over timehas been noticing a worsening and some finger sensation loss [id number] Roland Nicolas [facility] [address] [facility],[place] [address] 05/22/2023 16:05:28 05/25/2023 10:35:10 Alcohol dependence 36742980 F10.20 stable right now and is in remission Atrial fibrillation 4943 6004 I48.91 has been stablewill be cont to come off meds this coming month ( amlod dilitaz eliquis) Depressive disorder 3540 4537 F32.A is on wellbutrin 300 but doesnt feel quite enough and not feeling himself detox had stopped the duloxetine and changed to the fluoxetine which did not helpwe will put him on duloxe with the wellbutrin [id number] Roland Nicolas [facility] Internal [facility] [address] [facility], [place] [facility] [place] [address] 05/25/2023 15:39:48 05/26/2023 08:31:24 Hypothyroidism 43329593 E03.9 tsh is 20 will increase dose to 1 1/2 tab = 300mcg and rechk in 1-2 months Degenerati ve joint disease of shoulder region 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 M19.019 scooter inj well lucie Chronic ki dney disease 078638990 N18.9 Cholesterol screening 27 9428152 Z13.220 [id number] Roland Nicolas [facility] [address] [facility], [place] [address] 08/18/2023 13:54:51 08/18/2023 15:30:50 Pre-surgery evaluation 379794644 Z01.818 Patient is cleared for the proposed [...] has he had any episodes in years [id number] GLENNY SALDIVAR [facility] Internal Medicine [address] [facility], [place] 7 12/09/2023 13:47:18 12/09/2023 15:15:18 Fractured nasal bones 512970805 S02.2XXA check 4 to 6 weeks Fracture o f multiple ribs 0737658 S22.41XA check 4 to 6 weeks Pain of ri ght shoulder joint 6992625441 7992188 M25.511 check 4 to 6 weeks [id number] Roland Nicolas [facility] Internal Medicine [address] [facility],[place] [facility] [address] 05/23/2024 14:49:29 05/23/2024 16:15:02 Atrial fibrillation 68902485 I48.91 we will have him get a monitor done Hypothyroidism 43027427 E03.9 Hypertensive disorder 38 115916 I10 currently stable will cont to rechk Multiple joint pain 3567 8005 M25.50 [id number] Roland Nicolas [facility] Medicine [address] [facility],[place] [address] 05/31/2024 15:33:13 05/31/2024 16:46:15 Depression screening 314108421 Z13.31 pos Depressive disorder 3548 9007 F32.A is on wellbutrin 300 but doesnt feel quite enough and not feeling himself detox had stopped the duloxetine and changed to the fluoxetine which did not helpwe will put him on duloxe with the wellbutrin Hypertensive disorder 38 148453 I10 currently stable will cont to rechk Hypothyroidism 24888045 E03.9 Impaired f asting glycemia 048117467 R73.01 here for rechk and will be getting labs Atrial fibrillation 4943 6004 I48.91 we will have him get a monitor done Anemia 216492512 D64.9 needs additional lab start with iron if low will need colonoscop egd [id number] Roland Nicolas, [facility] [address] [facility],[place] [address] 06/14/2024 15:51:14 06/14/2024 16:35:26 Anxiety 03895772 F41.9 doing well with seroquel but with increased stress we will add buspar Atrial fibrillation 4943 6004 I48.91 we will have him get a monitor done Pain of le ft shoulder joint 6485901551 3254904 M25.[address] christianson Cobalamin deficiency 190 492437 E53.8 Iron deficiency 67265789 E61.1 Health Concerns Section Related Observation LastModified by Organization Detai ls LastModified Time None Recorded Concern Status LastModified by Organization Details LastModified Time None Recorded Advance Directives Directive None Recorded Payers Encounter Date Sequence Insurance Name Policy Number Policy Jacob Covered Member ID Jacob Member ID Guarantor Name 08/18/2023 1 [facility] Nathaniel Hernandez [id number] Nathaniel Hernandez 12/09/2023 1 [facility] Nathaniel Hernandez [id number] Nathaniel Hernandez 05/23/2024 1 [place] Nathaniel Hernandez [id number] Nathaniel Hernandez 05/31/2024 1 [place] Nathaniel Hernandez [id number] Nathaniel Hernandez 06/14/2024 1 [place] Nathaniel Hernandez [id number] Nathaniel Hernandez Notes Date Note Type Note Provider Name and Address Organization Details Recorded Time 05/21/202 4 text/htm l Pre-OpReported bypatient.Risk Factorsno cognitive [...] right shoulder revision Roland Nicolas DO [address] [place], [address], [facility] 08/18/2023 14:45:04 4 text/htm l suture removal removed all sutures, wound healingon abx from hospitalcleaned and dressed prior to leaving given repeat XR to check for routine healing vs displaced fx after the fact MADINA PATEL [address] [place], [address], [facility] 12/09/2023 14:24:44 5 text/htm [...] when not drinking Roland Nicolas DO [address] [place], [address], [facility] 05/23/2024 15:38:54 5 text/htm l here for lab reviewlong detailed discussion re: evid of anemia with evid of elevated sed rate and crp Roland Nicolas DO [address] [place], [address], [facility] 05/31/2024 16:45:33 5 text/htm l here for lab reviewlong detailed discussion re: evid of anemia with evid of elevated sed rate and crp Roland Nicolas DO [address] [place], [address], [facility] 06/14/2024 16:28:56
[2024-07-04 13:48] LABS: Iron 66 mcg/dL (45-160); Percent Iron Saturation 32 % (15-50); Total Iron Binding Capacity 205 mcg/dL (228-428); Unsaturated Iron Binding 139 ug/dL
[2024-07-04 14:03] LABS: Ferritin 113 ng/mL (20-250)
[2024-07-04 14:08] LABS: Folate 8.6 ng/mL (> or = 4.0); Vitamin B12 1174 pg/mL (200-900)
== END 2024-07-04 09:51 | disposition home or self-care (01) ==
LOC: HO.MANLDS 09:50
PROVIDERS: Visit Provider Internal Medicine
DX: E53.8 Deficiency of other specified B group vitamins (principal); E61.1 Iron deficiency
CPT/HCPCS: 36415; 82607; 82728; 82746; 83540